=== PATIENT | female | born 1945 | race Caucasian/White ===

== ENCOUNTER → 2019-12-18 09:48 | Outpatient (CLI) | payer MEDICARE, OTHER, SELFPAY ==
[2019-12-20 08:20] LABS: COVID19 Sendout Not Detected (Not Detect)
== END ==
PROVIDERS: Visit Provider Physician Assistant
DX: Z11.59 Encounter for screening for other viral diseases (principal)
CPT/HCPCS: 87635

== ENCOUNTER → 2019-12-21 08:42 | Outpatient (CLI) | payer MEDICARE, OTHER, SELFPAY ==
--- NOTE | 2019-12-27 08:24 | PM.PFT.1 ---
Pulmonary Function Test Referral & Results Date Patient Seen: 12/21/19 Requesting provider: Shantelle Huggins Results: The spirometry demonstrates an FVC of 2.90 L which is 92% of predicted. The FEV1 was measured at 2.09 L which is 88% of predicted. The FEV1/FVC ratio was 72 which is 95 % of predicted. Following the administration of bronchodilator there was 11% improvement in FEV1 and a 55% improvement in FEF 25-75%. Lung volumes show an SVC of 2.70 L which is 89% of predicted. The diffusing capacity was measured at 17.11 which is 63% of predicted. No hemoglobin value was provided, so no correction for potential anemia could be made, if appropriate. The maximum voluntary ventilation was normal Interpretation: This study demonstrates perhaps mild obstructive lung disease based on only a minimal reduction in FEV1 but some evidence of improvement following bronchodilator and the shape of the flow volume loop is also consistent with obstructive lung disease There is minimal reduction SVC although this could probably be considered normal as well There is a more significant reduction in diffusing capacity suggesting element of disease at the capillary alveolar level Overall this study is consistent with more of a pulmonary vascular disease based on reduction diffusing capacity
== END ==
PROVIDERS: PCP Family Medicine; Referring Provider Family Medicine; Visit Provider Family Medicine
DX: R05 Cough (principal); J98.8 Other specified respiratory disorders; Z87.891 Personal history of nicotine dependence
CPT/HCPCS: 94060; 94726; 94729

== ENCOUNTER 2020-07-05 06:59 | Emergency (ER) | payer MEDICARE, OTHER, SELFPAY ==
[2020-07-05] VITALS (9 sets, daily range): BP systolic 135–157; BP diastolic 67–85; PULSE 65–75; RESP 16–29; TEMP 36.4; O2SAT 98–100; BMI 25.0
--- NOTE | 2020-07-05 07:26 | ED_ITS ---
HPI - Dizziness General Chief Complaint: Dizziness Stated Complaint: dizzy/hard to walk Time Seen by Provider: 07/05/20 07:09 Source: patient Mode of arrival: Ambulatory Limitations: no limitations History of Present Illness HPI Narrative: Patient is a is a 74-year-old female with history of hypothyroid presenting with dizziness. She said she woke up this morning got out of bed and immediately felt dizzy upon standing. She says she we tried to ambulate to the bathroom but was leaning to the right side she did make it. She has no nausea vomiting or chest pain or palpitations. She has not passed out. Her symptoms have actually improved since arriving to the emergency department. His she has had this happened to her once before a year ago she said it lasted for about 24 hours and resolved. She thinks that that might happen again but wanted to be short period. She denies any numbness tingling or weakness. MD complaint: dizziness Related Data Home Medications Medication Instructions Recorded Confirmed levothyroxine [Synthroid] 0.075 mg PO QAM #0 03/02/17 02/06/19 naproxen sodium [Aleve] 220 mg PO Q DAY PRN PRN #0 03/02/17 02/06/19 Previous Rx's Medication Instructions Recorded azithromycin 250 mg tablet See Rx Instructions PO .COMPLEX #6 02/06/19 tab benzonatate 100 mg capsule 100 mg PO BID PRN #14 cap 02/06/19 meclizine 25 mg PO TID PRN #10 tab 07/05/20 Allergies Allergy/AdvReac Type Severity Reaction Status Date / Time ibuprofen [IBUPROFEN] Allergy Unknown VOMITING Verified 02/06/19 10:56 Penicillins [PENICILLINS] Allergy Unknown HIVES, Verified 02/06/19 10:56 ITCHING Review of Systems Review of Systems Narrative: GENERAL: Denies chills, fatigue, malaise, fever, sweats, travel HEENT: Denies sinus pain, ear pain, sore throat, difficulty swallowing, neck pain RESPIRATORY: Denies dyspnea, cough, wheezing, hemoptysis, sputum. CARDIOVASCULAR: Denies chest pain, palpitations, orthopnea, edema GASTROINTESTINAL: Denies nausea, vomiting, abdominal pain, diarrhea, constipation, melena. : Denies dysuria, frequency, incontinence, hematuria, urinary retention, flank pain. MUSCULOSKELETAL: Denies weakness, joint pain, or bony pain SKIN: No rash, no erythema, no pruritus NEUROLOGIC: See HPI PSYCHIATRIC: No concerning psychosocial issues. 12 point review of systems is negative except for those stated above and HPI Patient History Social History Smoking Status: Never smoker Smoking Status: Never smoker alcohol intake frequency: a few times a week Alcohol type: beer Exam Initial Vital Signs Initial Vital Signs: Vital Signs Pulse Rate 75 07/05/20 07:09 Blood Pressure 135/67 07/05/20 07:09 Pulse Oximetry 98 07/05/20 07:09 GENERAL: Alert well-appearing 74-year-old female and in no acute distress. HEENT: Head atraumatic,EOMI, pupils reactive, face symmetric, moist mucous membranes CARDIOVASCULAR: Regular rate and rhythm without murmurs, rubs or gallops. RESPIRATORY: Breath sounds equal bilaterally, no wheezes rales or rhonchi. ABDOMEN: Soft, nontender. Normoactive bowel sounds all 4 quadrants. No guarding or rebound. EXTREMITIES: Normal range of motion, no clubbing or edema. Neurovascularly intact NEUROLOGICAL: Alert and oriented x4.Normal gait and speech. Cranial nerves II through XII grossly intact. Good [id number], good [id number], strength equal bilaterally, no dysarthria or aphasia, sensation in tact to soft touch bilaterally, no visual changes, no facial droop SKIN: Warm, dry, no laceration, no petechiae, no rashes or lesions. Scores NIH Stroke Scale Level of Conciousness: Alert, keenly responsive Ask month/age: Answers both questions correctly. Open/close eyes, close hand: Performs both tasks correctly Best gaze horizontal: Normal Visual vasquez: No visual loss Facial palsy: Normal symetrical movement Left arm drift: No drift for full 10 sec Right arm drift: No drift for full 10 sec Left leg drift: No drift for full 5 sec Right leg drift: No drift for full 5 sec Limb ataxia: Absent Sensory on face/arms/legs: Normal, no sensory loss Best language: No aphasia, normal Dysarthria: Normal Extinction or inattention: No abnormality Total NIH Stroke scale score: 0 Course Orders Ordered: ED Orders 07/05/20 07:26 CT head/brain wo con Stat EKG-12 Lead Stat 07/05/20 07:45 Complete Blood Count AUTO DIFF Stat Comprehensive Metabolic Panel Stat Troponin & CK Cardiac Panel Stat Discontinued Medications Sodium Chloride (Normal Saline 0.9%) 1,000 mls @ 1,000 mls/hr IV CONT JAYMIE Last Infusion: 07/05/20 09:30 Dose: 0 mls/hr Documented by: Admin: 07/05/20 07:43 Dose: 1,000 mls/hr Documented by: PEDRO Meclizine HCl (Meclizine Hcl 12.5 Mg Tablet) 25 mg PO NOW ONE Stop: 07/05/20 07:27 Last Admin: 07/05/20 07:43 Dose: 25 mg Documented by: PEDRO Vital Signs Vital signs: Vital Signs - 8 hr 07/05/20 07:09 07/05/20 07:18 07/05/20 07:30 Temperature 97.6 F Pulse Rate 75 75 73 Respiratory Rate 16 Blood Pressure 135/67 135/67 Pulse Oximetry 98 98 99 07/05/20 08:08 07/05/20 08:17 07/05/20 08:30 Temperature Pulse Rate 71 66 72 Respiratory Rate 16 Blood Pressure 157/74 H Pulse Oximetry 99 100 99 07/05/20 08:51 07/05/20 09:00 07/05/20 09:24 Temperature Pulse Rate 65 66 67 Respiratory Rate 18 18 29 H Blood Pressure 147/70 H 141/85 H Pulse Oximetry 100 100 100 MDM - Dizziness Lab Data Attestation: I reviewed the patient's lab results. Result diagrams: 07/05/20 07:45 07/05/20 07:45 Labs: Lab Results 07/05/20 07/05/20 Range/Units 07:45 07:45 WBC 4.9 (4.5-11.0) X10^3/uL RBC 4.45 (4.0-5.2) X10^6/uL Hgb 13.6 (12.0-16.0) g/dL Hct 40.8 (36-46) % MCV 91.7 (80-100) fL MCH 30.5 (26-34) PG MCHC 33.2 (30-36) % RDW 13.1 (11.6-14.8) % Plt Count 174 (150-400) X10^3/uL Neut % (Auto) 59.3 (50-75) % Lymph % (Auto) 29.6 (25-40) % [place] % (Auto) 8.0 (3-14) % Eos % (Auto) 1.7 L (2-4) % Baso % (Auto) 1.4 (0-2) % Neut # (Auto) 2900 (1011-8196) /uL Lymph # (Auto) 1500 (9199-6150) /uL [place] # (Auto) 400 (0-900) /uL Eos # (Auto) 100 (0-450) /uL Baso # (Auto) 100 (0-100) /uL Sodium 136 L (137-145) mmol/L Potassium 4.1 (3.4-5.1) mmol/L Chloride 107 (98-107) mmol/L Carbon Dioxide 25 (22-32) mmol/L BUN 26 H (7-17) mg/dL Creatinine 0.74 (0.52-1.04) mg/dL Estimated GFR > 60.0 (>60) mL/min BUN/Creatinine Ratio 35.1 H (6-22) Glucose 93 (80-110) mg/dL Calcium 9.0 (8.4-10.2) mg/dL Total Bilirubin 0.5 (0.2-1.3) mg/dL AST 28 (14-36) IU/L ALT 19 (<35) IU/L Alkaline Phosphatase 66 (38-126) U/L Total Creatine Kinase 59 (30-135) U/L CK-MB (CK-2) TNP CK-MB (CK-2) Rel Index TNP Troponin I < 0.012 (0.01-0.034) ng/mL Total Protein 6.6 (6.3-8.2) g/dL Albumin 3.9 (3.5-5.0) g/dL Globulin 2.7 (1.7-4.1) g/dL Albumin/Globulin Ratio 1.4 (1.0-2.8) Urine Dip Bedside Urine Glucose Negative Bedside Urine Bilirubin - Negative Bedside Urine Ketone - Negative Urine Specific [place] 1.015 Bedside Urine Occult Blood - Negative Bedside Urine pH 6.0 Bedside Urine Protein - Negative Bedside Urine Urobilinogen +/- 1mg Bedside Urine Nitrite - Negative Bedside Urine Leukocytes - Negative Esterase Imaging Data CT scan - head: Radiologist's Impression: PROCEDURE: CT HEAD/BRAIN WO CON INDICATIONS: dizzy TECHNIQUE: Noncontrast 4.5 mm thick angled axial sections acquired from the foramen magnum to the vertex, with coronal and sagittal reformats. For radiation dose reduction, the following was used: automated exposure control, adjustment of mA and/or kV according to patient size. COMPARISON: None. FINDINGS: Image quality: Excellent. CSF spaces: Basal cisterns are patent. No extra-axial fluid collections. The ventricles are symmetric in size and shape. Brain: No intracranial bleeds or masses. There is cerebral volume loss for age, with resultant ventricular and sulcal prominence. There are periventricular and deep white matter chronic small vessel ischemic changes. There is intracranial internal carotid artery atherosclerosis. Skull and face: Calvarium and visualized facial bones appear intact, without suspicious lesions. Sinuses: Visualized sinuses and mastoids are clear. IMPRESSION: 1. No CT evidence of acute intracranial pathology. 2. Age-appropriate atrophy and mild white matter chronic small vessel ischemic changes. Dictated by: Bret Milan M.D. on 07/05/2020 at 8:11 ECG Data Attestation: I personally reviewed and interpreted this ECG as follows: Interpretation: Normal sinus rhythm rate 68 p.r. interval 204 QRS [address] changes no T-wave inversions MDM Narrative Medical decision making narrative: Patient is ambulatory to the restroom she is having some issues walking but needs minimal assistance. She has been given meclizine she continues to improve she ambulated to the restroom again and stating even more improvement with her walking. At this time I believe her to have vertigo. She has no nystagmus. Symptoms continue to improve on their own and with meclizine unlikely to be posterior stroke. Patient feels ready in able to go. Discharge Plan Departure Patient Disposition: Home Clinical Impression: Benign paroxysmal positional vertigo Qualifiers: Laterality: unspecified laterality Qualified Code(s): H81.10 - Benign paroxysmal vertigo, unspecified ear Instructions: DI for Vertigo Activity Restrictions/Additional Instructions: *You have been diagnosed with vertigo *What to do: Increase activity as tolerated this should resolve on its own. *Continue to take medications as directed--> SENT TO [facility] Meclizine 25 mg every 8 hours if needed for dizziness *Follow up with your primary care provider in 2-3 days *Return to ER if you should have worsening dizziness, numbness, tingling, weakness, speech difficulty inability to walk or any new, worsening or concerning symptoms Prescriptions: New meclizine 25 mg tablet 25 mg PO TID PRN (Reason: dizziness) Qty: 10 RF: 0 No Action azithromycin 250 mg tablet See Rx Instructions PO .COMPLEX Qty: 6 RF: 0 benzonatate [Tessalon Perles] 100 mg capsule 100 mg PO BID PRN (Reason: cough) Qty: 14 RF: 0 levothyroxine [Synthroid] 75 MCG tablet 0.075 mg PO QAM Qty: 0 RF: 0 naproxen sodium [Aleve] 220 MG tablet 220 mg PO Q DAY PRN PRNQty: 0 RF: 0 Referrals: Shantelle Huggins MD [Primary Care Provider] -
[2020-07-05] MEDS: SODIUM CHLORIDE 0.9% 1,000 ML 1000 ML IV (07:43)
[2020-07-05] MEDS: MECLIZINE HCL 12.5 MG TABLET 25 MG PO (07:43)
[2020-07-05 08:02] LABS: Add Manual Diff / Slide Review NO; Basophils Absolute Auto 100 /uL (0-100); Basophils Percent Auto 1.4 % (0-2); Eosinophils Absolute Auto 100 /uL (0-450); Eosinophils Percent Auto 1.7 % (2-4); Hematocrit 40.8 % (36-46); Hemoglobin 13.6 g/dL (12.0-16.0); Lymphocytes Absolute Auto 1500 /uL (1100-4500); Lymphocytes Percent Auto 29.6 % (25-40); Mean Corpuscular HGB Conc 33.2 % (30-36); Mean Corpuscular Hemoglobin 30.5 PG (26-34); Mean Corpuscular Volume 91.7 fL (80-100); Monocytes Absolute Auto 400 /uL (0-900); Neutrophils Absolute Auto 2900 /uL (1500-7000); Neutrophils Percent Auto 59.3 % (50-75); Platelet Count 174 X10^3/uL (150-400); Red Blood Cell Count 4.45 X10^6/uL (4.0-5.2); Red Cell Distribution Width 13.1 % (11.6-14.8); White Blood Cell Count 4.9 X10^3/uL (4.5-11.0)
[2020-07-05 08:10] LABS: Alanine Aminotransferase 19 IU/L (<35); Albumin 3.9 g/dL (3.5-5.0); Albumin Globulin Ratio 1.4 (1.0-2.8); Alkaline Phosphatase 66 U/L (38-126); Aspartate Aminotransferase 28 IU/L (14-36); BUN Creatinine Ratio 35.1 (6-22); Bilirubin Total 0.5 mg/dL (0.2-1.3); Blood Urea Nitrogen 26 mg/dL (7-17); Carbon Dioxide 25 mmol/L (22-32); Chloride 107 mmol/L (98-107); Creatine Kinase 59 U/L (30-135); Estimated Glomerular Filt Rate > 60.0 mL/min (>60); Globulin 2.7 g/dL (1.7-4.1); Glucose 93 mg/dL (80-110); HEMOLYSIS 19 (0-50); Potassium 4.1 mmol/L (3.4-5.1); Sodium 136 mmol/L (137-145); Total Protein 6.6 g/dL (6.3-8.2)
--- NOTE | 2020-07-05 08:19 | PC.NURSE ---
Pt still feels like she lists to one side while walking though said it has improved. Pt ambulated to restroom with assistance.
[2020-07-05 08:20] LABS: Troponin I < 0.012 ng/mL (0.01-0.034)
== END 2020-07-05 09:33 | disposition home or self-care (01) ==
PROVIDERS: Emergency Provider Emergency Medicine; PCP Family Medicine
DX: H81.10 Benign paroxysmal vertigo, unspecified ear (principal)
CPT/HCPCS: 36415; 70450; 80053; 81003; 82550; 84484; 85025; 93005; 93010; 96360; 96361; 99284; 99285

== ENCOUNTER → 2020-10-22 11:38 | Outpatient (CLI) | payer MEDICARE, OTHER, SELFPAY ==
[2020-10-22 12:48] LABS: COVID19 -Nasal RAPID Negative (Negative)
== END ==
PROVIDERS: PCP Family Medicine; Referring Provider Physician Assistant; Visit Provider Physician Assistant
DX: R05 Cough (principal); Z20.822 Contact with and (suspected) exposure to COVID-19; R09.81 Nasal congestion
CPT/HCPCS: 87635

== ENCOUNTER → 2022-08-08 11:10 | Outpatient (CLI) | payer MEDICARE, OTHER, SELFPAY ==
--- NOTE | 2022-08-08 11:14 | DI.MRI.S_ITS ---
PROCEDURE: MR HEAD/BRAIN WO CON INDICATIONS: Anesthesia of skin TECHNIQUE: Noncontrast axial T1 spin echo, axial T2 fast spin echo, sagittal and axial FLAIR, coronal T2 fast spin echo, axial gradient echo, axial diffusion and ADC through the brain. COMPARISON: None. FINDINGS: Image quality: Excellent. CSF Spaces: Basal cisterns are patent. No extra-axial fluid collections. Ventricles are normal in size and shape. Brain: No intracranial masses or hemorrhage. [place]/white matter interface is normal. Brainstem appears normal. Diffusion-weighted sequence is unremarkable without evidence of acute infarct. Normal intravascular flow voids are present. In the right middle cranial fossa anteriorly a, there is a extra-axial homogeneous mass lesion measuring 1.4 by 0.9 cm with minimal mass effect on the temporal pole. No associated cerebral edema. Otherwise, there is mild atrophy and multifocal white matter chronic ischemic change present. Skull and face: Calvarium has normal marrow signal. Bilateral intraocular lens replacements noted. Sinuses: Sinuses and mastoids are clear. IMPRESSION: Small right temporal extra-axial mass lesion, probable small meningioma. Consider follow-up contrast MR for confirmation. Mild atrophy and white matter chronic ischemic change without acute infarct or hemorrhage. Approved by: Kervin Mcgarry M.D. on 08/10/2022 at 17:40
== END ==
PROVIDERS: PCP Family Medicine; Referring Provider Family Medicine; Visit Provider Family Medicine
DX: R20.0 Anesthesia of skin (principal); M54.89 Other dorsalgia; R22.0 Localized swelling, mass and lump, head
CPT/HCPCS: 70551